=== PATIENT | female | born 1935 | race Caucasian/White ===

== ENCOUNTER 2022-07-21 23:01 | Inpatient (IN) | payer OTHER ==
[~2022-07-21] VITALS: Ht 165.1 cm; Wt 89.8 kg
[2022-07-21 23:10] VITALS: BP_SYST 191
[2022-07-22 02:11] LABS: BILIRUBIN,URINE NEGATIVE (NEGATIVE); BLOOD, URINE NEGATIVE (NEGATIVE); COLOR,URINE YELLOW (YELLOW); GLUCOSE,URINE NEGATIVE (NEGATIVE); KETONES,URINE NEGATIVE (NEGATIVE); LEUKOCYTE ESTERASE ,URINE TRACE (NEGATIVE); NITRITE, URINE NEGATIVE (NEGATIVE); PROTEIN URINE NEGATIVE (NEGATIVE); UROBILINOGEN,URINE 0.2 (0.2-1.0)
[2022-07-22 02:30] LABS: CLARITY/URINE HAZY (CLEAR)
[2022-07-22 02:34] LABS: BACTERIA,URINE RARE /HPF (None Seen); RBC,URINE 0-3 /HPF (0-3)
[2022-07-22] MEDS ORDERED: traMADol HCL HCL 50 MG TABLET (ULTRAM) PO ONE (03:00)
[2022-07-22] MEDS ORDERED: ACET325T PO (03:03)
[2022-07-22] MEDS ORDERED: CLON0.1T PO (03:04)
[2022-07-22] MEDS ORDERED: PHEN57OI23 RC (03:05)
[2022-07-22] MEDS ORDERED: HYDR-3917 PO (03:06)
[2022-07-22] MEDS ORDERED: VIS25 PO (03:07)
[2022-07-22] MEDS ORDERED: ONDA-8 TL (03:10)
[2022-07-22] MEDS ORDERED: PROP10DR2 EACH EYE (03:11)
[2022-07-22] MEDS ORDERED: LOSA50TA3 PO (03:13)
[2022-07-22] MEDS ORDERED: MELA5TAB21 PO (03:13)
[2022-07-22] MEDS ORDERED: METO200T3 PO (03:13)
[2022-07-22] MEDS ORDERED: MULT-1089 PO (03:14)
[2022-07-22] MEDS ORDERED: MIRT7.5T11 PO (03:14)
[2022-07-22] MEDS ORDERED: OMEP20CA15 PO (03:15)
[2022-07-22] MEDS ORDERED: POTA10TA PO (03:15)
[2022-07-22] MEDS ORDERED: RIVA1PAT3 TP (03:16)
[2022-07-22] MEDS ORDERED: TRAM50TA2 PO (03:17)
[2022-07-22] MEDS ORDERED: [UNRECOGNIZED DRUG - CODE] (03:19)
[2022-07-22] MEDS ORDERED: ATOR20TA64 PO (03:20)
[2022-07-22] MEDS ORDERED: DILT240C91 PO (03:21)
[2022-07-22] MEDS ORDERED: CALC-6 PO (03:21)
[2022-07-22] MEDS ORDERED: DEPS125 PO (03:22)
[2022-07-22] MEDS ORDERED: DOCU-144 PO (03:23)
[2022-07-22] MEDS ORDERED: FLUT16SP16 NS (03:23)
[2022-07-22] MEDS ORDERED: FURO-150 PO (03:24)
[2022-07-22] MEDS ORDERED: GABA-529 PO (03:24)
[2022-07-22] MEDS ORDERED: LEVO100T9 PO (03:25)
[2022-07-22] MEDS ORDERED: LORA10TA7 PO (03:25)
[2022-07-22] MEDS: NACL 0.9% 1,000 ML IV SCH ×3 (03:30→23:00)
[2022-07-22] MEDS ORDERED: MAGNESIUM SULFATE 50 ML IV PRN (08:30)
[2022-07-22] MEDS ORDERED: ACETAMINOPHEN 325 MG TABLET PO PRN (08:30)
[2022-07-22] MEDS ORDERED: ZOLPIDEM TARTRATE 5 MG TABLET PO PRN (08:30)
[2022-07-22] MEDS ORDERED: POTASSIUM CHLORIDE 20 MEQ TAB.PRT.SR PO PRN (08:30)
[2022-07-22] MEDS ORDERED: MUPIROCIN 2% TOPICAL OINTMENT 22 GM NS PRN (08:30)
[2022-07-22] MEDS ORDERED: LORazepam 2 MG/ML VIAL IVP PRN (08:30)
[2022-07-22] MEDS ORDERED: NALOXONE HCL 0.4 MG/ML AMP (NARCAN) IVP PRN ×2 (08:30)
[2022-07-22] MEDS ORDERED: DOCUSATE SODIUM 100 MG CAPSULE PO PRN (08:30)
[2022-07-22] MEDS ORDERED: MORPHINE 2 MG/ML INJ. SYRINGE IVP PRN ×2 (08:30)
[2022-07-22] MEDS ORDERED: ONDANSETRON HCL 4 MG/2 ML VIAL IVP PRN (08:30)
[2022-07-22] MEDS ORDERED: traMADol HCL HCL 50 MG TABLET (ULTRAM) PO PRN (08:45)
[2022-07-22 08:59] LABS: BASOPHILS # (AUTO) 0.1 K/uL (0.0-0.2); BASOPHILS % (AUTO) 1.3 % (0.0-2.0); EOSINOPHILS # (AUTO) 0.2 K/uL (0.0-0.4); EOSINOPHILS % (AUTO) 2.9 % (0.0-4.0); HEMATOCRIT 46.3 % (36-48); HEMOGLOBIN 15.3 g/dL (12.0-16.0); LYMPHOCYTES # (AUTO) 1.9 K/uL (1.0-5.5); LYMPHOCYTES % (AUTO) 33.6 % (20.5-51.5); MEAN CORPUSCULAR HEMOGLOBIN 30 pg (27-31); MEAN CORPUSCULAR HGB CONC 33 % (32-36); MEAN CORPUSCULAR VOLUME 92 fL (79.0-98.0); MONOCYTES # (AUTO) 0.6 K/uL (0.0-1.0); MONOCYTES % (AUTO) 10.1 % (1.7-9.3); NEUTROPHILS % (AUTO) 52.1 % (40.0-70.0); PLATELET COUNT (AUTO) 187 K/uL (130-430); RED BLOOD CELL COUNT(AUTO) 5.05 MIL/uL (4.2-6.2); RED CELL DISTRIBUTION WIDTH 13.9 % (9.0-15.0); WHITE BLOOD COUNT (AUTO) 5.8 K/uL (4.8-10.8)
[2022-07-22 10:09] VITALS: BP_SYST 157
[2022-07-22 10:56] LABS: ANION GAP 10 (5-15); CHLORIDE 106 mmol/L (98-107); CREATININE 0.67 mg/dL (0.55-1.30); GLUCOSE 97 mg/dL (70-99); UREA NITROGEN, BLOOD 17 mg/dL (8-21)
[2022-07-22] MEDS ORDERED: RIVASTIGMINE 9.5 MG/24 HR PATCH.TD24 TP ONE (11:00)
[2022-07-22] MEDS: DILTIAZEM HCL 240 MG CAP.SR.24H PO SCH (12:23)
[2022-07-22] MEDS: FUROSEMIDE 20 MG TABLET PO SCH ×2 (12:24→21:16)
[2022-07-22] MEDS: LEVOTHYROXINE SODIUM 0.1 MG TABLET PO SCH (12:25)
[2022-07-22] MEDS: LOSARTAN POTASSIUM 50 MG TABLET (COZAAR) PO SCH (12:25)
[2022-07-22] MEDS: HEPARIN SODIUM,PORCINE 5,000 UNITS/ML VIAL SUBCUT SCH ×2 (12:27→21:08)
[2022-07-22] MEDS: METOPROLOL SUCCINATE 50 MG TAB.SR.24H (TOPROL XL) PO SCH (12:33)
[2022-07-22] MEDS: RIVASTIGMINE 9.5 MG/24 HR PATCH.TD24 TP SCH (12:34)
[2022-07-22] MEDS: DIVALPROEX SODIUM 125 MG CAP.(DEPAKOTE SPRINKLE) PO SCH ×2 (12:35→21:07)
[2022-07-22 13:53] VITALS: BP_SYST 172
[2022-07-22 18:21] VITALS: BP_SYST 142
[2022-07-22] MEDS ORDERED: GABAPENTIN 100 MG CAPSULE PO SCH (21:00)
[2022-07-22] MEDS ORDERED: MIRTAZAPINE 15 MG TABLET PO SCH (21:00)
[2022-07-22 21:14] VITALS: BP_SYST 158
[2022-07-23] VITALS: BP_SYST 155
[2022-07-23] MEDS: NACL 0.9% 1,000 ML IV SCH (01:44)
[2022-07-23 04:00] VITALS: BP_SYST 146
[2022-07-23 05:57] LABS: BASOPHILS # (AUTO) 0.1 K/uL (0.0-0.2); EOSINOPHILS # (AUTO) 0.2 K/uL (0.0-0.4); HEMATOCRIT 44.2 % (36-48); HEMOGLOBIN 14.5 g/dL (12.0-16.0); LYMPHOCYTES # (AUTO) 2.1 K/uL (1.0-5.5); LYMPHOCYTES % (AUTO) 41.5 % (20.5-51.5); MEAN CORPUSCULAR HEMOGLOBIN 30 pg (27-31); MEAN CORPUSCULAR HGB CONC 33 % (32-36); MEAN CORPUSCULAR VOLUME 91 fL (79.0-98.0); MONOCYTES # (AUTO) 0.5 K/uL (0.0-1.0); MONOCYTES % (AUTO) 10.2 % (1.7-9.3); NEUTROPHILS # (AUTO) 2.2 K/uL (1.8-7.7); NEUTROPHILS % (AUTO) 43.3 % (40.0-70.0); PLATELET COUNT (AUTO) 176 K/uL (130-430); RED BLOOD CELL COUNT(AUTO) 4.84 MIL/uL (4.2-6.2); RED CELL DISTRIBUTION WIDTH 13.8 % (9.0-15.0); WHITE BLOOD COUNT (AUTO) 5.1 K/uL (4.8-10.8)
[2022-07-23 06:15] LABS: ANION GAP 8 (5-15); CALCIUM 8.8 mg/dL (8.4-11.0); CHLORIDE 108 mmol/L (98-107); CREATININE 0.68 mg/dL (0.55-1.30); GLUCOSE 106 mg/dL (70-99); UREA NITROGEN, BLOOD 16 mg/dL (8-21)
[2022-07-23] MEDS ORDERED: FLUTICASONE PROPIONATE 50 mCg/SPRAY 16 GM NS SCH (09:00)
[2022-07-23] MEDS: DILTIAZEM HCL 240 MG CAP.SR.24H PO SCH (09:45)
[2022-07-23] MEDS: DIVALPROEX SODIUM 125 MG CAP.(DEPAKOTE SPRINKLE) PO SCH (09:46)
[2022-07-23] MEDS: LOSARTAN POTASSIUM 50 MG TABLET (COZAAR) PO SCH (09:46)
[2022-07-23] MEDS: FUROSEMIDE 20 MG TABLET PO SCH (09:46)
[2022-07-23] MEDS: METOPROLOL SUCCINATE 50 MG TAB.SR.24H (TOPROL XL) PO SCH (09:47)
[2022-07-23] MEDS: LEVOTHYROXINE SODIUM 0.1 MG TABLET PO SCH (09:47)
[2022-07-23] MEDS: RIVASTIGMINE 9.5 MG/24 HR PATCH.TD24 TP SCH (09:48)
[2022-07-23] MEDS: HEPARIN SODIUM,PORCINE 5,000 UNITS/ML VIAL SUBCUT SCH (09:50)
[2022-07-23 09:55] VITALS: BP_SYST 176
[2022-07-23 11:38] VITALS: BP_SYST 148
[2022-07-23 13:18] VITALS: BP_SYST 160
== END 2022-07-23 13:50 | disposition home health service (06) | DRG 914 ==
LOC: SED 23:01 → SMU 07-22 02:58
PROVIDERS: ADMIT General Practice; ATTEND General Practice
DX: S09.90XA Unspecified injury of head, initial encounter (principal); I16.0 Hypertensive urgency; G89.29 Other chronic pain; E03.9 Hypothyroidism, unspecified; E78.5 Hyperlipidemia, unspecified; F03.A0 Unspecified dementia, mild, without behavioral disturbance, psychotic disturbance, mood disturbance, and anxiety; I48.91 Unspecified atrial fibrillation; F41.9 Anxiety disorder, unspecified; K21.9 Gastro-esophageal reflux disease without esophagitis; Z20.822 Contact with and (suspected) exposure to COVID-19; M54.9 Dorsalgia, unspecified; W18.39XA Other fall on same level, initial encounter; Z79.899 Other long term (current) drug therapy; Z88.8 Allergy status to other drugs, medicaments and biological substances; Y93.89 Activity, other specified; Y92.89 Other specified places as the place of occurrence of the external cause; Y99.8 Other external cause status; R53.81 Other malaise
CPT/HCPCS: 36415; 70450-TC; 72125-TC; 72192-TC; 76376; 80048; 81000; 83037; 83735; 85025; 87081; 87086; 97116-GP; 97163-GP; 97530-GP; 99285; J1644